=== PATIENT | female | born 1995 | race Caucasian/White ===

== ENCOUNTER 2021-07-03 11:14 | Emergency (ER) | payer OTHER ==
[2021-07-03 12:45] LABS: INFLUENZA A NAA NEGATIVE (NEGATIVE)
[2021-07-03 12:50] LABS: CORONAVIRUS 2019 SARS-COV-2 POSITIVE (NEGATIVE)
[2021-07-03] MEDS ORDERED: PROAIR HFA8.5 GM INH (16:17)
[2021-07-03] MEDS ORDERED: PREDNISONE 20MG20 MG PO (16:17)
== END 2021-07-03 16:37 | disposition home or self-care (01) ==
LOC: FER 11:14
PROVIDERS: Emergency Medicine
DX: U07.1 COVID-19 (principal); I10 Essential (primary) hypertension; F17.210 Nicotine dependence, cigarettes, uncomplicated; Z88.0 Allergy status to penicillin; Z88.1 Allergy status to other antibiotic agents; Z88.8 Allergy status to other drugs, medicaments and biological substances
CPT/HCPCS: 71046; U0002